=== PATIENT | female | born 1950 | race Caucasian/White ===

== ENCOUNTER → 2020-01-30 10:49 | Outpatient (CLI) | payer MEDICARE, BC, SELFPAY ==
[2020-01-30 11:19] LABS: COVID19 -Nasal RAPID Negative (Negative)
== END ==
PROVIDERS: Visit Provider Surgery
DX: Z01.812 Encounter for preprocedural laboratory examination (principal); Z20.828 Contact with and (suspected) exposure to other viral communicable diseases; Z11.59 Encounter for screening for other viral diseases; K63.5 Polyp of colon
CPT/HCPCS: 87635; 99211

== ENCOUNTER 2020-01-31 07:59 | Day surgery (SDC) | payer MEDICARE, BC, SELFPAY ==
--- NOTE | 2020-01-31 | PATH_ITS ---
[facility] Accession Number: [id number] . 01 Material submitted: . rectum - RECTAL POLYP AT 15 CM . 02 Diagnosis: Rectum, Polyp at 15 cm, Biopsy: Benign lymphoid aggregate. MRV 02/03/2020 1454 Local . 02 Electronically signed: . Bernarda Magaña MD, Pathologist NPI- [id number] . 01 Gross description: . RECTAL POLYP AT 15 CM: Received in formalin are 2 fragment(s) of meadows, soft tissue measuring 0.7 x 0.3 x 0.1 cm to 0.3 x 0.2 x 0.1 cm submitted entirely in 1 cassette(s) /QBJ 02/01/2020 0649 Local . 02 Pathologist provided ICD-10: K63.5 . 02 CPT . 301364 Performed at: 01 [facility] [address] [facility] [address] [id number] MD Patrick Lanza MD Phone: [phone] Performed at: 02 [facility] [address] [place], [place] [id number] MD Bernarda Magaña MD Phone: [phone]
[2020-01-31] MEDS: SODIUM CHLORIDE 0.9% 1,000 ML 200 ML IV (08:12)
[2020-01-31 08:23] VITALS: BP 130/72; PULSE 69; RESP 16; TEMP 36.4; O2SAT 98; BMI 27.8
--- NOTE | 2020-01-31 09:23 | PM.HP.1 ---
History of Present Illness History of Present Illness Date Patient Seen: 01/31/20 Time Patient Seen: 09:23 Chief complaint: SDC Narrative: This is a 69-year-old woman with history of 2 prior screening colonoscopies which were reportedly normal per the patient. She is due for her repeat colonoscopy at this time. She denies any melena, hematochezia, unexplained abdominal pain, unexplained weight loss, personal or family history of colon polyps or colon cancers. She has rheumatoid arthritis. She says she is otherwise well, denies any significant medical problems. ROS: Arthritis related joint pain. Thirteen system review is otherwise negative other than as mentioned below and in HPI. PE: GENERAL: Well groomed and cooperative. Appears stated age. Answers questions promptly and appropriately. Vital signs noted. HENT: Normocephalic, atraumatic. Hearing intact. EYES: Conjunctiva pink, sclera white, no periorbital swelling. CARDIOVASCULAR: Regular rate. No pedal edema. RESPIRATORY: Non-tachypneic, breathing comfortably on room air. GASTROINTESTINAL: Abdomen soft and non-distended GENITALURINARY: No flank tenderness. MUSCULOSKELETAL: Equal tone and mass bilaterally. SKIN: Warm, dry, soft, appropriate color for ethnicity. No other lesions, rashes, or wounds. NEURO: Alert and Oriented X 3. No gross sensory deficits, or cognitive issues. PSYCH: Appropriate affect and mood. Patient History Family & Social History Social History: household members none Tobacco & Substance use: Smoking Status Former smoker alcohol intake frequency holiday/special occasion Substance Use Type does not use Meds Home Medications and Allergies Home Medications Medication Instructions Recorded Confirmed Type dorzolamide-timolol 22.3 ml OPHTHALMIC (EYE) 01/31/20 History hydroxychloroquine 200 mg PO BID 01/31/20 01/31/20 History ibuprofen 800 mg PO Q6H 01/31/20 01/31/20 History latanoprost 1 drp DAILY 01/31/20 01/31/20 History sulfasalazine 500 mg PO BID 01/31/20 01/31/20 History Allergies Allergy/AdvReac Type Severity Reaction Status Date / Time No Known Drug Allergies Allergy Verified 01/31/20 08:12 Exam Vital Signs (past 8 hours): - 01/31/20 08:23 Temperature 97.6 F Pulse Rate 69 Respiratory Rate 16 Blood Pressure 130/72 Pulse Oximetry 98 Oxygen Delivery Method Room Air Assessment & Plan Assessment and plan (1) At average risk for colon cancer: Status: Acute Assessment & Plan narrative: Risks and benefits of screening colonoscopy and possible polypectomy were discussed with the patient including risk of bleeding, perforation, need for additional procedures, risks of anesthesia. The patient desires to proceed with the colonoscopy procedure. COVID-19 COVID-19 status: Negative Result date/Date tested (Pos, Neg/Pending): 01/30/20 Time Spent With Patient Time with patient: 15-24 minutes Quality VTE Deep Vein Thrombosis/Pulmonary Embolism Present on Admission: No
--- NOTE | 2020-01-31 09:26 | P.OP.ENDO_ITS ---
Operative Date/Time/Diagnoses Date of procedure: 01/31/20 Time of procedure: 09:26 Pre-op diagnosis: Average risk for colon cancer, due for screening colonoscopy Post-op diagnosis: other (Single benign-appearing polyp at 15 cm in the rectum) Procedure & Clinicians Study performed: Colonoscopy Procedural sedation performed by the endoscopist Polypectomy with cold forceps Same procedure as scheduled: Yes Indications: Average risk for colon cancer, due for screening colonoscopy Surgeon: Kiara Ledesma Procedure Notes SCOAP/Timeout: Performed Procedure in detail: The patient was brought to the room and placed in left late ral decubitus position with all bony prominences padded. A time-out was performed and then the patient was given procedural sedation starting with 2 mg of Versed and 100 mcg of fentanyl. A total of 4mg of Versed and 100 micro g of fentanyl were given for the entire procedure. Vitals were monitored throughout the procedure and remained stable. Once adequately sedated, the procedure was begun. A rectal exam was performed revealing no abnormalities. The colonoscope was then introduced to the rectum and advanced to the cecum in the usual fashion. The cecum was identified by the appendiceal orifice, the mucosal tri- fold, and the ileocecal valve. The scope was then retracted while rotating side to side and examining each mucosal fold. Small mucosal abnormality, consistent with a low-grade polyp, was seen at 15 cm the rectum and was removed in sent for pathology. At the conclusion of the procedure retroflexion was performed and small grade 1-2 internal hemorrhoids without stigmata of bleeding were seen. The scope was then withdrawn from the rectum the procedure was concluded. The patient tolerated the procedure well and was transferred to the PACU in stable condition. Scope withdrawal time: 8 Sedation minutes: 19 Findings: polyp Specimen(s): other (Small polyp from 15 cm in the rectum) Complications: none Impression: Normal colon, 1 tiny polyp which is likely benign Post-procedure Recommendations: Colonscopy in 10 years (So long as pathology is benign) Follow up: as needed Disposition: PACU
[2020-01-31] MEDS: fentaNYL 250 MCG/5 ML INJ IV (09:30)
[2020-01-31] MEDS: MIDAZOLAM 5 MG/5 ML VIAL IV (09:30)
[2020-01-31 09:54] VITALS: BP 108/62; PULSE 59; RESP 14; TEMP 36.1; O2SAT 97
[2020-01-31 09:59] VITALS: BP 109/64; PULSE 67; RESP 17; TEMP 36.3; O2SAT 98
[2020-01-31 10:04] VITALS: BP 101/61; PULSE 64; RESP 21; TEMP 36.1; O2SAT 98
[2020-01-31 10:09] VITALS: BP 111/61; PULSE 57; RESP 16; TEMP 36.2; O2SAT 98
== END 2020-01-31 10:56 | disposition home or self-care (01) ==
PROVIDERS: Referring Provider Surgery; Visit Provider Surgery
PROC: 0DJD8ZZ Inspection of Lower Intestinal Tract, Via Natural or Artificial Opening Endoscopic (ICD-10-PCS; CPT 45378; principal; 2020-01-31 09:15)
DX: Z12.11 Encounter for screening for malignant neoplasm of colon (principal); K64.0 First degree hemorrhoids; K63.5 Polyp of colon
CPT/HCPCS: 45380; 99152; J2250; J3010